=== PATIENT | female | born 1995 | race Caucasian/White ===

== ENCOUNTER 2021-02-22 04:51 | Emergency (ER) | payer BC, MEDICAID ==
[2021-02-22] MEDS ORDERED: Lidocaine 1% 30 ML SDV INJECT ONE (05:08)
--- NOTE | 2021-02-22 05:35 | EDM.PDOC ---
ED HPI GENERAL MEDICAL PROBLEM - General Stated Complaint: head laceration , fall on skateboard Time Seen by Provider: 02/22/21 05:00 Source of Information: Reports: Patient History Limitations: Reports: No Limitations - History of Present Illness INITIAL COMMENTS - FREE TEXT/NARRATIVE: Pt. presents to ER with complaints of head, L shoulder, and R knee injury post longboarding accident. Pt. states that this happened at about 0200 this AM. Denies any LOC. She states that she "saw white" when she hit her head on the concrete. She states that she is nauseated, but has not vomited. States that she feels a bit fatigued and lightheaded. Denies any neck pain. No chest or abdominal pain. Pt. denies any numbness/tingling in extremities. No vision loss or change. Denies any entrapment of the eye. Pt. states that she able to bear weight on the leg. Denies any decreased ROM to the to the L shoulder. 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 Denies: Paresthesia, Pre-Existing Deficit, Seizure, Syncope, Tremors, Trouble Speaking, Difficulty Walking, Weakness, Change in Speech, Gait Disturbance Psychiatric: Reports: No Symptoms Hematologic/Lymphatic: Reports: No Symptoms Immunologic: Reports: No Symptoms ED EXAM, GENERAL - Physical Exam Exam: See Below Exam Limited By: No Limitations General Appearance: Alert, WD/WN, No Apparent Distress Eye Exam: Bilateral Eye: EOMI Ears: Normal External Exam, Normal Canal, Hearing Grossly Normal, Normal TMs Nose: Normal Inspection, Normal Mucosa, No Blood Throat/Mouth: Normal Inspection, Normal Lips, Normal Teeth, Normal Gums, Normal Oropharynx, Normal Voice, No Airway Compromise Head: Other (2 small lacerations (1 cm and subcentimeter) laceration to L lateral eyebrow. No obvious laine deformity.) Neck: Normal Inspection, Supple, Non-Tender, Full Range of Motion Respiratory/Chest: No Respiratory Distress, Lungs Clear, Normal Breath Sounds, No Accessory Muscle Use, Chest Non-Tender Cardiovascular: Normal Peripheral Pulses, Regular Rate, Rhythm, No Edema, No JVD, No Murmur Peripheral Pulses: 4+: Radial (L), Radial (R) GI/Abdominal: Soft, Non-Tender, No Organomegaly, No Distention, No Mass (Female) Exam: Deferred Rectal (Female) Exam: Deferred Back Exam: Normal Inspection, Full Range of Motion Extremities: No Pedal Edema, Normal Capillary Refill, Arm Pain (L anterior proximal arm), Leg Pain (R knee pain) Neurological: Alert, Oriented, CN II-XII Intact, Normal Cognition, Normal Gait, Normal Reflexes, No Motor/Sensory Deficits Psychiatric: Normal Affect, Normal Mood Skin Exam: Warm, Dry, Intact, Normal Color, No Rash Lymphatic: No Adenopathy ED GENERAL MEDICAL PROCEDURES - Laceration/Wound Repair Left Lateral Brow Lac/wound length in cm: 1.5 Appearance: Subcutaneous, Clean Distal NVT: Neuro & Vascular Intact Anesthetic Type: Local Local Anesthesia - Lidocaine (Xylocaine): 1% Plain Local Anesthetic Volume: 3cc Skin Prep: Chlorhexidine (Hibiciens), Saline Closed with: Sutures Suture Size: 5-0 # of Sutures: 3 Suture Type: Nylon Course - Vital Signs Last Recorded V/S: Last Vital Signs Temp 36.8 C 02/22/21 06:13 Pulse 111 H 02/22/21 06:13 Resp 17 02/22/21 06:13 BP 140/96 H 02/22/21 06:13 Pulse Ox 100 02/22/21 06:13 - Orders/Labs/Meds Orders: Active Orders 24 hr Category Date Time Status Head wo Cont [CT] Stat Exams 02/22/21 05:26 Taken Knee Min 4V Rt [CR] Stat Exams 02/22/21 05:24 Taken Shoulder Comp Lt [CR] Stat Exams 02/22/21 05:25 Taken Meds: Medications Discontinued Medications Generic Name Dose Route Start Last Admin Trade Name Elizabeth PRPeewee Reason Stop Dose Admin Lidocaine HCl 30 ml 02/22/21 05:08 02/22/21 05:01 Lidocaine 1% 30 Ml Sdv INJECT 02/22/21 05:09 30 ml ONETIME ONE Administration - Radiology Interpretation Free Text/Narrative:: CT head negative for acute pathology Radiographs of L shoulder and R knee were reviewed by myself and no obvious pathology was noted. Pt. wanted to leave prior to getting results. Departure - Departure Time of Disposition: 06:52 Disposition: Home, Self-Care 01 Clinical Impression: Concussion injury of brain, Laceration - Discharge Information Instructions: Head Injury, Adult, Laceration Care, Adult, Contusion, [id number] Referrals: PCP,None [Primary Care Provider] - Forms: ED Department Discharge Additional Instructions: Home to rest Sutures can be removed in clinic in 10 days Return to ER/clinic if you notice redness, swelling or discharge from the lacerations. Keep area dry for 24 hours Ice painful areas for 10 min every hour Sepsis Event Note (ED) - Focused Exam Vital Signs: Vital Signs Temp Pulse Resp BP Pulse Ox 02/22/21 06:13 36.8 C 111 H 17 140/96 H 100 - Problem List Review Problem List Initiated/Reviewed/Updated: Yes - My Orders Last 24 Hours: My Active Orders 02/22/21 05:24 Knee Min 4V Rt [CR] Stat 02/22/21 05:25 Shoulder Comp Lt [CR] Stat 02/22/21 05:26 Head wo Cont [CT] Stat - Assessment/Plan Last 24 Hours: My Active Orders 02/22/21 05:24 Knee Min 4V Rt [CR] Stat 02/22/21 05:25 Shoulder Comp Lt [CR] Stat 02/22/21 05:26 Head wo Cont [CT] Stat Plan: Home to rest Sutures can be removed in clinic in 10 days Return to ER/clinic if you notice redness, swelling or discharge from the lacerations. Keep area dry for 24 hours Ice painful areas for 10 min every hour
--- NOTE | 2021-02-22 08:08 | CT ---
[id number] CT/CT Head WO IV EXAM: CT Head WO IV CLINICAL DATA: FELL SKATEBOARDING COMPARISON STUDY: None FINDINGS: No intracranial hemorrhage, extra-axial fluid collection, mass, or acute ischemia. No hydrocephalus. Calvarium intact. Mucosal thickening throughout the ethmoid air cells and frontal sinuses. IMPRESSION: No acute intracranial findings. Shawn Daniel MD 02/22/21 [id number] Thank you for allowing us to participate in the care of your patient.
--- NOTE | 2021-02-22 08:26 | CR ---
[id number] RAD/RAD Knee Right 4V EXAM: 4 VIEWS RIGHT KNEE. INDICATION: FELL SKATEBOARDING UNABLE TO BEND KNEE COMPARISON: None. DISCUSSION: No fracture, dislocation or other acute osseous abnormality. IMPRESSION: 1. No acute osseous abnormalities. Navid Jung DO 02/22/21 [id number] Thank you for allowing us to participate in the care of your patient.
--- NOTE | 2021-02-22 08:26 | CR ---
[id number] RAD/RAD Shoulder Left 2V Min EXAM: 3 VIEWS LEFT SHOULDER. INDICATION: FELL SKATEBOARDING UNABLE TO LIFT ARM VERY FAR COMPARISON: None. DISCUSSION: No fracture, dislocation or other acute osseous abnormality. IMPRESSION: 1. No acute osseous abnormalities. Navid Jung DO 02/22/21 [id number] Thank you for allowing us to participate in the care of your patient.
== END 2021-02-22 06:59 | disposition home or self-care (01) ==
LOC: VM.ED 04:51
DX: S06.0X0A Concussion without loss of consciousness, initial encounter (principal); S01.81XA Laceration without foreign body of other part of head, initial encounter; V00.131A Fall from skateboard, initial encounter; Y93.51 Activity, roller skating (inline) and skateboarding
CPT/HCPCS: 12011; 70450; 73030-LT; 73564-RT; 99283; 99284-25